=== PATIENT | female | born 1950 | race African-American/Black ===

== ENCOUNTER 2020-04-29 12:06 | Emergency (ER) | payer MEDICARE, MEDICAID ==
[~2020-04-29] VITALS: Ht 182.9 cm; Wt 80.0 kg
[2020-04-29] MEDS ORDERED: PREDNISONE 20MG TABLET PO ONE (13:15)
[2020-04-29] MEDS ORDERED: ALBUTEROL 6.7GM HFA INHALER ORI ONE ×3 (13:15)
[2020-04-29] MEDS ORDERED: IBUPROFEN 600MG TABLET PO ONE (13:15)
[2020-04-29 19:49] VITALS: BP 100/78
== END 2020-04-29 19:50 | disposition home or self-care (01) ==
LOC: ER 12:10
DX: J44.1 Chronic obstructive pulmonary disease with (acute) exacerbation (principal); J20.9 Acute bronchitis, unspecified; I10 Essential (primary) hypertension; E11.9 Type 2 diabetes mellitus without complications
CPT/HCPCS: 71045; 93005; 99283; J7512

== ENCOUNTER 2022-06-25 18:17 | Inpatient (IN) | payer MEDICARE, MEDICAID ==
[~2022-06-25] VITALS: Ht 172.7 cm; Wt 76.7 kg
[2022-06-25 23:30] LABS: CHLORIDE 104 mEq/L (98-107)
[2022-06-25 23:45] LABS: BASOPHILS % 0.7 % (0.0-2.0); EOSINOPHILS % 0.7 % (0.0-5.0); HEMATOCRIT. 39.2 % (36.0-48.0); HEMOGLOBIN. 12.5 g/dL (12.0-16.0); LYMPHOCYTES % 33.7 % (20.0-50.0); MEAN CORPUSCULAR HEMOGLOBIN 25.1 pg (28.0-32.0); MEAN CORPUSCULAR VOLUME 78.7 fL (81.0-99.0); MONOCYTES % 8.3 % (2.0-8.0); NEUTROPHILS % 56.6 % (40.0-76.0); PLATELET 236 x1000/uL (130-400); RED BLOOD CELL COUNT 4.98 mill/uL (4.2-5.4); RED CELL DISTRIBUTION WIDTH 15.4 % (11.6-14.6)
[2022-06-26] VITALS: BP 107/31
[2022-06-26] MEDS ORDERED: CEFTRIAXONE 2 G in DEXTROSE 5% WATER 50 ML IV NR (01:30)
[2022-06-26] MEDS ORDERED: DEXAMETHASONE 4MG/ML 1ML VIAL IV ONE (01:30)
[2022-06-26] MEDS ORDERED: AZITHROMYCIN 500MG/250ML 250 ML IV ONE (01:30)
[2022-06-26] MEDS ORDERED: CEFTRIAXONE 2 G PREMIX 50 ML IV ONE (01:30)
[2022-06-26 05:50] VITALS: BP 130/56
[2022-06-26 08:00] VITALS: BP 124/49
[2022-06-26] MEDS ORDERED: ONDANSETRON HCL 4MG/2ML INJ IV PRN (10:30)
[2022-06-26] MEDS ORDERED: ENOXAPARIN 40MG/0.4ML SYR SUBCUT SCH (10:30)
[2022-06-26 12:00] VITALS: BP 118/51
[2022-06-26] MEDS ORDERED: IPRATROPIUM/ALBUTEROL 0.5-3(2.5)MG/3ML NEB HHN SCH (12:00)
[2022-06-26] MEDS ORDERED: CEFTRIAXONE 1 G PREMIX 50 ML IV SCH (12:30)
[2022-06-26 14:34] LABS: BG BASE EXCESS -1.8 mmol/L (-2.0-2.0); BG DEOXYHEMOGLOBIN 2.3 % (0.0-5.0); BG FRACTION INSPIRED OXYGEN 32; BG METHEMOGLOBIN 0.2 % (0.0-1.5); BG OXYGEN SATURATION 97.6 % (92.0-98.5); BG OXYHEMOGLOBIN 95.5 % (94.0-97.0); BG PCO2 44.5 mmHg (35.0-45.0); BG PH 7.349 (7.350-7.450); BG SAMPLE SITE LEFT RADIAL; BG TOTAL HEMOGLOBIN 12.1 g/dL (12.0-18.0); BG VENT MODE NASAL CANNULA
[2022-06-26] MEDS: IPRATROPIUM BROMIDE (0.02%) 0.5MG/2.5ML NEB HHN SCH (14:50)
[2022-06-26] MEDS: ALBUTEROL (0.083%) 2.5MG/3ML NEB HHN SCH (14:50)
[2022-06-26] MEDS: BENZONATATE 200MG CAPSULE PO SCH ×2 (15:52→19:00)
[2022-06-26 16:00] VITALS: BP 129/66
[2022-06-26 20:00] VITALS: BP 127/54
[2022-06-26] MEDS: FAMOTIDINE 20MG/2ML VIAL IV SCH (21:29)
[2022-06-27 00:17] LABS: BASOPHILS % 0.3 % (0.0-2.0); HEMATOCRIT. 37.4 % (36.0-48.0); HEMOGLOBIN. 11.9 g/dL (12.0-16.0); LYMPHOCYTES % 22.6 % (20.0-50.0); MEAN CORPUSCULAR HEMOGLOBIN 25.2 pg (28.0-32.0); MEAN CORPUSCULAR VOLUME 79.4 fL (81.0-99.0); MEAN PLATELET VOLUME 8.9 fl (7.4-10.4); MONOCYTES % 6.8 % (2.0-8.0); NEUTROPHILS % 70.3 % (40.0-76.0); PLATELET 222 x1000/uL (130-400); RED BLOOD CELL COUNT 4.71 mill/uL (4.2-5.4); RED CELL DISTRIBUTION WIDTH 15.1 % (11.6-14.6)
[2022-06-27] MEDS: IPRATROPIUM BROMIDE (0.02%) 0.5MG/2.5ML NEB HHN SCH ×6 (00:21→20:00)
[2022-06-27] MEDS: ALBUTEROL (0.083%) 2.5MG/3ML NEB HHN SCH ×6 (00:21→21:00)
[2022-06-27 00:29] LABS: CHLORIDE 102 mEq/L (98-107)
[2022-06-27 00:38] LABS: CREATINE KINASE 290 IU/L (26-192); CREATINE KINASE MB FRACTION 1.9 ng/mL (0.5-3.6)
[2022-06-27] MEDS: TEMAZEPAM 15MG CAPSULE PO PRN ×2 (01:22→21:26)
[2022-06-27] MEDS: CEFTRIAXONE 1,000 MG in DEXTROSE 5% WATER 50 ML IV SCH (01:33)
[2022-06-27 04:00] VITALS: BP 123/55
[2022-06-27] MEDS: AZITHROMYCIN 500 MG in DEXT 5% WATER 250 ML IV SCH (04:30)
[2022-06-27 08:00] VITALS: BP 128/54
[2022-06-27] MEDS ORDERED: ENOXAPARIN 80MG/0.8ML SYR SUBCUT NR (08:00)
[2022-06-27] MEDS: FAMOTIDINE 20MG/2ML VIAL IV SCH ×2 (08:59→21:26)
[2022-06-27] MEDS: BENZONATATE 200MG CAPSULE PO SCH ×3 (08:59→17:08)
[2022-06-27] MEDS: DEXAMETHASONE 4MG/ML 1ML VIAL IV SCH (08:59)
[2022-06-27 12:00] VITALS: BP 121/58
[2022-06-27 16:00] VITALS: BP 142/66
[2022-06-27 17:38] LABS: HEMATOCRIT. 37.2 % (36.0-48.0); HEMOGLOBIN. 11.6 g/dL (12.0-16.0); MEAN CORPUSCULAR HEMOGLOBIN 24.9 pg (28.0-32.0); MEAN CORPUSCULAR VOLUME 79.9 fL (81.0-99.0); MEAN PLATELET VOLUME 8.1 fl (7.4-10.4); PLATELET 244 x1000/uL (130-400); RED BLOOD CELL COUNT 4.66 mill/uL (4.2-5.4); RED CELL DISTRIBUTION WIDTH 15.4 % (11.6-14.6)
[2022-06-27 17:48] LABS: INR 0.9; PROTHROMBIN TIME 9.8 sec (9.6-11.0)
[2022-06-27 18:02] LABS: CHLORIDE 105 mEq/L (98-107)
[2022-06-27 18:14] LABS: PLATELET ESTIMATE NORMAL
[2022-06-27 20:00] VITALS: BP 123/54
[2022-06-27] MEDS: ENOXAPARIN 80MG/0.8ML SYR SUBCUT SCH (21:26)
[2022-06-28] VITALS: BP 162/75
[2022-06-28] MEDS: IPRATROPIUM BROMIDE (0.02%) 0.5MG/2.5ML NEB HHN SCH ×6 (00:47→23:59)
[2022-06-28] MEDS: ALBUTEROL (0.083%) 2.5MG/3ML NEB HHN SCH ×6 (00:47→23:59)
[2022-06-28] MEDS: CEFTRIAXONE 1,000 MG in DEXTROSE 5% WATER 50 ML IV SCH (01:00)
[2022-06-28] MEDS: AZITHROMYCIN 500 MG in DEXT 5% WATER 250 ML IV SCH (01:00)
[2022-06-28] MEDS: ACETAMINOPHEN 325MG TABLET PO PRN ×3 (01:52→17:05)
[2022-06-28 04:00] VITALS: BP 152/71
[2022-06-28] MEDS ORDERED: CLONIDINE 0.1MG TABLET PO PRN (06:00)
[2022-06-28 08:00] VITALS: BP 154/70
[2022-06-28] MEDS: FAMOTIDINE 20MG/2ML VIAL IV SCH ×2 (09:10→21:02)
[2022-06-28] MEDS: BENZONATATE 200MG CAPSULE PO SCH ×3 (09:10→17:05)
[2022-06-28] MEDS: ENOXAPARIN 80MG/0.8ML SYR SUBCUT SCH ×2 (09:11→21:02)
[2022-06-28] MEDS: DEXAMETHASONE 4MG/ML 1ML VIAL IV SCH (09:11)
[2022-06-28 12:00] VITALS: BP 158/78
[2022-06-28 16:00] VITALS: BP 158/71
[2022-06-28 20:00] VITALS: BP 158/77
[2022-06-28] MEDS: TEMAZEPAM 15MG CAPSULE PO PRN (21:02)
[2022-06-29] VITALS (7 sets, daily range): BP systolic 129–158; BP diastolic 63–94
[2022-06-29] MEDS: CEFTRIAXONE 1,000 MG in DEXTROSE 5% WATER 50 ML IV SCH (01:07)
[2022-06-29] MEDS: AZITHROMYCIN 500 MG in DEXT 5% WATER 250 ML IV SCH (01:07)
[2022-06-29] MEDS: ALBUTEROL (0.083%) 2.5MG/3ML NEB HHN SCH ×5 (03:57→20:24)
[2022-06-29] MEDS: IPRATROPIUM BROMIDE (0.02%) 0.5MG/2.5ML NEB HHN SCH ×5 (03:57→20:25)
[2022-06-29] MEDS: ENOXAPARIN 80MG/0.8ML SYR SUBCUT SCH ×2 (08:56→20:49)
[2022-06-29] MEDS: BENZONATATE 200MG CAPSULE PO SCH ×3 (08:56→17:48)
[2022-06-29] MEDS: FAMOTIDINE 20MG/2ML VIAL IV SCH (08:56)
[2022-06-29] MEDS: DEXAMETHASONE 4MG/ML 1ML VIAL IV SCH (08:56)
[2022-06-29 12:39] LABS: BASOPHILS % 0.2 % (0.0-2.0); HEMATOCRIT. 37.4 % (36.0-48.0); HEMOGLOBIN. 11.8 g/dL (12.0-16.0); MEAN CORPUSCULAR HEMOGLOBIN 24.9 pg (28.0-32.0); MEAN CORPUSCULAR VOLUME 78.7 fL (81.0-99.0); MEAN PLATELET VOLUME 8.4 fl (7.4-10.4); MONOCYTES % 4.2 % (2.0-8.0); NEUTROPHILS % 79.6 % (40.0-76.0); PLATELET 296 x1000/uL (130-400); RED BLOOD CELL COUNT 4.75 mill/uL (4.2-5.4); RED CELL DISTRIBUTION WIDTH 14.9 % (11.6-14.6)
[2022-06-29 12:56] LABS: CHLORIDE 103 mEq/L (98-107)
[2022-06-29] MEDS ORDERED: IOHEXOL-350 100 ML BOTTLE ONE (14:46)
[2022-06-29] MEDS: TEMAZEPAM 15MG CAPSULE PO PRN (20:48)
[2022-06-29] MEDS ORDERED: FAMOTIDINE 20MG TABLET PO SCH (21:00)
[2022-06-29] MEDS ORDERED: AZITHROMYCIN 500 MG TABLET PO SCH (21:00)
[2022-06-30] MEDS ORDERED: APIXABAN 2.5 MG TABLET PO SCH (09:00)
== END 2022-06-30 00:08 | DRG 177 ==
LOC: ER 18:46 → 7EST 06-26 01:19 → EDUNIT# 06-26 01:19
PROVIDERS: ADMIT Internal Medicine; ATTEND Internal Medicine
DX: U07.1 COVID-19 (principal); J12.82 Pneumonia due to coronavirus disease 2019; J96.21 Acute and chronic respiratory failure with hypoxia; J44.0 Chronic obstructive pulmonary disease with (acute) lower respiratory infection; E11.9 Type 2 diabetes mellitus without complications; E78.00 Pure hypercholesterolemia, unspecified; I10 Essential (primary) hypertension; K21.9 Gastro-esophageal reflux disease without esophagitis; Z86.718 Personal history of other venous thrombosis and embolism
CPT/HCPCS: 36415; 36600; 71045; 71275; 80048; 80053; 82375; 82550; 82553; 82805; 83880; 84484; 85025; 85379; 87426; 93005; 93970; 94640; 99291; C1893; C9803; J0456; J0696; J1100; J1650; J3490; J7060; Q9967

== ENCOUNTER 2024-05-11 15:51 | Emergency (ER) | payer MEDICARE, MEDICAID ==
[~2024-05-11] VITALS: Ht 172.7 cm; Wt 75.2 kg
[2024-05-11 15:54] VITALS: O2SAT 100
[2024-05-11 17:09] LABS: BASOPHILS % 0.4 % (0.0-2.0); DIFFERENTIAL COMMENT 0; HEMATOCRIT. 33.3 % (36.0-48.0); HEMOGLOBIN. 10.7 g/dL (12.0-16.0); LYMPHOCYTES % 30.6 % (20.0-50.0); MEAN CORPUSCULAR HEMOGLOBIN 24.8 pg (28.0-32.0); MEAN CORPUSCULAR HGB CONC 32.1 g/dL (31.0-37.0); MEAN CORPUSCULAR VOLUME 77.2 fL (81.0-99.0); MEAN PLATELET VOLUME 8.1 fl (7.4-10.4); MONOCYTES % 7.8 % (2.0-8.0); NEUTROPHILS % 58.2 % (40.0-76.0); PLATELET 315 x1000/uL (130-400); RED BLOOD CELL COUNT 4.31 mill/uL (4.2-5.4); RED CELL DISTRIBUTION WIDTH 16.1 % (11.6-14.6); WHITE BLOOD COUNT 8.8 x1000/uL (4.5-11.0)
[2024-05-11 17:12] LABS: CARBON DIOXIDE 27 mEq/L (21-32); CHLORIDE 103 mEq/L (98-107); INR 0.9; POTASSIUM 4.4 mEq/L (3.5-5.1); PROTHROMBIN TIME 10.2 sec (9.6-11.0); SODIUM 138 mEq/L (136-145)
[2024-05-11 17:13] LABS: CALCIUM 9.6 mg/dL (8.7-10.4)
[2024-05-11 17:17] LABS: TROPONIN I HIGH SENSITIVITY 17 ng/L (3.0-34)
[2024-05-11 17:18] LABS: CREATININE 0.9 mg/dL (0.6-1.0); GLUCOSE 129 mg/dL (70-105); UREA NITROGEN BLOOD 18 mg/dL (9-23)
[2024-05-11 17:22] LABS: ETHANOL BLOOD < 10 mg/dL (<10)
[2024-05-11 19:07] LABS: CLARITY URINE CLOUDY (CLEAR); COLOR URINE YELLOW (YELLOW); GLUCOSE URINE NEGATIVE (NEGATIVE); KETONES URINE NEGATIVE (NEGATIVE); LEUKOCYTE ESTERASE URINE NEGATIVE (NEGATIVE); NITRITE URINE NEGATIVE (NEGATIVE); OCCULT BLOOD URINE NEGATIVE (NEGATIVE); PROTEIN URINE NEGATIVE (NEGATIVE); SPECIFIC GRAVITY URINE 1.032 (1.005-1.030)
[2024-05-11 19:22] LABS: *AMPHETAMINES SCREEN URINE NEGATIVE (NEGATIVE); *BARBITURATES SCREEN URINE NEGATIVE (NEGATIVE); *BENZODIAZEPINES SCREEN URINE NEGATIVE (NEGATIVE); *COCAINE SCREEN URINE NEGATIVE (NEGATIVE); CANNABINOID URINE SCREEN NEGATIVE (NEGATIVE); ECSTASY MDMA SCREEN URINE NEGATIVE (NEGATIVE); METHADONE URINE SCREEN NEGATIVE (NEGATIVE); OPIATES URINE SCREEN NEGATIVE (NEGATIVE); PHENCYCLIDINE URINE SCREEN NEGATIVE (NEGATIVE)
[2024-05-11 19:30] LABS: BACTERIA URINE 3+; RBC URINE 0-2 /hpf (0-2); SQUAMOUS EPITHELIAL CELL URINE FEW /lpf (RARE/1+); WBC URINE NONE SEEN /hpf (0-2)
[2024-05-11 19:37] VITALS: O2SAT 100
[2024-05-11] MEDS ORDERED: CEFP200T13 MT (19:58)
[2024-05-11] MEDS ORDERED: ASPI-1497 MT (19:58)
[2024-05-11 23:21] VITALS: BP 167/75; PULSE 98; RESP 16; TEMP 36.72516
[2024-05-11] MEDS ORDERED: IOHEXOL-350 100 ML BOTTLE ONE (23:47)
== END 2024-05-11 23:50 | disposition home or self-care (01) ==
LOC: ER 15:51
DX: I63.9 Cerebral infarction, unspecified (principal); N39.0 Urinary tract infection, site not specified; R29.810 Facial weakness; E03.9 Hypothyroidism, unspecified; E11.9 Type 2 diabetes mellitus without complications; F20.9 Schizophrenia, unspecified; I10 Essential (primary) hypertension; J44.9 Chronic obstructive pulmonary disease, unspecified; K21.9 Gastro-esophageal reflux disease without esophagitis; Z95.0 Presence of cardiac pacemaker
CPT/HCPCS: 80305; 80048; 81003; 80320; 85025; 85610; 84484; 36415; 71045; 70496; 70498; 70450; 93005; 99285; Q9967; A4606; G0480

== ENCOUNTER 2025-01-29 14:48 | Emergency (ER) | payer MEDICARE, MEDICAID ==
[~2025-01-29] VITALS: Ht 177.8 cm; Wt 78.0 kg
[~2025-01-29 14:48] MED LIST: AMLO10TA80 PO; ASPI-1497 MT; ATOR20TA65 PO; CLOP75TA33 PO; DOCU-422 PO; FAMO20TA8 PO; FERR325T30 PO; LEVO100T9 PO; LOSA25TA26 PO; METF-414 MT; MULT-1279 PO; OXYB5TAB21 PO; RISP0.5T79 PO; SULF1TAB47 MT
[2025-01-29 14:50] VITALS: TEMP 36.6; O2SAT 98
[2025-01-29 16:49] LABS: BASOPHILS % 0.9 % (0.0-2.0); EOSINOPHILS % 2.9 % (0.0-5.0); HEMATOCRIT. 34.7 % (36.0-48.0); HEMOGLOBIN. 11.1 g/dL (12.0-16.0); LYMPHOCYTES % 39.6 % (20.0-50.0); MEAN PLATELET VOLUME 7.2 fl (7.4-10.4); MONOCYTES % 7.9 % (2.0-8.0); NEUTROPHILS % 48.7 % (40.0-76.0); PLATELET 232 x1000/uL (130-400); RED BLOOD CELL COUNT 4.41 mill/uL (4.2-5.4); RED CELL DISTRIBUTION WIDTH 16.2 % (11.6-14.6)
[2025-01-29 17:03] LABS: CREATININE 0.8 mg/dL (0.6-1.0); UREA NITROGEN BLOOD 7 mg/dL (9-23)
[2025-01-29 17:05] LABS: ASPARTATE AMINOTRANSFERASE 17 IU/L (<34)
[2025-01-29 17:06] LABS: BILIRUBIN TOTAL 0.5 mg/dL (0.1-1.0); PROTEIN TOTAL 6.9 g/dL (6.0-8.3)
[2025-01-29 22:00] VITALS: BP 139/51; PULSE 87; RESP 16; O2SAT 98
== END 2025-01-29 22:03 | disposition home or self-care (01) ==
LOC: ER 15:02
DX: R49.0 Dysphonia (principal); E03.9 Hypothyroidism, unspecified; E11.9 Type 2 diabetes mellitus without complications; F20.9 Schizophrenia, unspecified; I10 Essential (primary) hypertension; Z79.02 Long term (current) use of antithrombotics/antiplatelets; Z79.82 Long term (current) use of aspirin; Z79.84 Long term (current) use of oral hypoglycemic drugs; Z79.899 Other long term (current) drug therapy; Z95.0 Presence of cardiac pacemaker
CPT/HCPCS: 36415; 70490; 80053; 84443; 85025; 99285; A4606